=== PATIENT | male | born 1990 | race Caucasian/White ===

== ENCOUNTER 2023-11-04 18:09 | Emergency (ER) | payer SELFPAY ==
[~2023-11-04 18:09] MED LIST: Ketorolac 30 MG/ML VIAL IV ONE
[2023-12-10 20:18] LABS: ALBUMIN 4.7 g/dL (3.5-5.0); ALT/SGPT 19 U/L (0-55); AST-SGOT 23 U/L (5-34); CALCIUM 9.7 mg/dL (8.3-10.5); CARBON DIOXIDE 25 mmol/L (22-29); GLUCOSE 89 mg/dL (75-110); SODIUM 140 mmol/L (136-145); TOTAL BILIRUBIN 0.2 mg/dL (0.2-1.2); TROPONIN-I < 0.030 ng/mL (0.00-0.033)
[2023-12-10 20:19] LABS: BASO # 0.03 K/mm3 (0.02-0.10); EOS # 0.15 K/mm3 (0.04-0.40); EOS % 1.8 % (0.0-4.0); HEMOGLOBIN 14.7 g/dL (13.5-18.0); LYMPH# 3.15 K/mm3 (1.50-4.00); MEAN CELL VOLUME 92 fl (78-100); MEAN CORPUSCULAR HEMOGLOBIN 30 pg (27-31); MEAN CORPUSCULAR HGB CONC 33 g/dL (33-37); MEAN PLATELET VOLUME 11.8 fl (7.4-10.4); MONO # 0.73 K/mm3 (0.20-0.80); NEU # 4.42 K/mm3 (1.40-6.50); PLATELET COUNT 318 K/mm3 (130-400); RED BLOOD COUNT 4.92 M/mm3 (4.20-5.60); WHITE BLOOD COUNT 8.5 K/mm3 (4.8-10.8)
== END 2023-11-04 20:00 | disposition home or self-care (01) ==
LOC: ED 18:09
PROVIDERS: Physician Assistant
DX: R07.9 Chest pain, unspecified (principal)
CPT/HCPCS: J1885

== ENCOUNTER 2024-07-17 18:32 | Emergency (ER) | payer OTHER ==
[~2024-07-17 18:32] MED LIST changes: +ACETAMINOPHEN-H1 TA2 PO; -Ketorolac 30 MG/ML VIAL IV ONE; +ZOFRAN ODT4 MG PO
[2024-07-17] MEDS ORDERED: PANTOPRAZOLE SO40 MG PO (19:32)
[2024-07-17] MEDS ORDERED: LEVOTHYROXINE0.05 MG PO (19:32)
[2024-07-17] MEDS ORDERED: MIXED AMPHETAMIN PO (19:32)
[2024-07-17 21:29] LABS: BASO # 0.04 K/mm3 (0.02-0.10); EOS # 0.12 K/mm3 (0.04-0.40); EOS % 1.4 % (0.0-4.0); HEMATOCRIT 43.6 % (42.0-52.0); HEMOGLOBIN 14.4 g/dL (13.5-18.0); LYMPH# 3.28 K/mm3 (1.50-4.00); MEAN CELL VOLUME 92 fl (78-100); MEAN CORPUSCULAR HEMOGLOBIN 30 pg (27-31); MEAN CORPUSCULAR HGB CONC 33 g/dL (33-37); MEAN PLATELET VOLUME 11.8 fl (7.4-10.4); MONO # 0.77 K/mm3 (0.20-0.80); NEU # 4.28 K/mm3 (1.40-6.50); PLATELET COUNT 356 K/mm3 (130-400); RED BLOOD COUNT 4.74 M/mm3 (4.20-5.60); WHITE BLOOD COUNT 8.5 K/mm3 (4.8-10.8)
[2024-07-17 22:05] VITALS: BP 145/98
== END 2024-07-17 22:05 | disposition home or self-care (01) ==
LOC: ED 18:32
PROVIDERS: Family Medicine
DX: R07.89 Other chest pain (principal); F17.210 Nicotine dependence, cigarettes, uncomplicated; F17.290 Nicotine dependence, other tobacco product, uncomplicated